=== PATIENT | female | born 1960 | race African-American/Black ===

== ENCOUNTER → 2017-04-16 | Outpatient (CLI) | payer BC, OTHER ==
[~2017-04-16] VITALS: Ht 157.5 cm; Wt 107.0 kg
[~2017-04-16] MED LIST: ALDACTONE50 MG PO; CARDIZEM CD180 MG PO; HYTRIN 5 M5 MG/1 CAP PO; IBUPROFEN 800800 M1 PO; MAXZIDE-25 MG1 EACH PO; OXYCODONE-ACET1 EACH PO; PRINZIDE 20-251 EACH PO; ZANAFLEX4 MG PO
--- NOTE | ~2017-04-16 | HPC ---
[facility] [place] [address] PAIN MANAGEMENT CONSULTATION Name: LAWRENCE RAMEY Room #: REG [facility].#: [id number] Admission: 04/16/17 Attend Phys: Matthias Milton DO Discharge: Date of : 62 Report #: [id number] THIS REPORT FOR: //name// CC: Matthias OLIVEIRA DATE OF SERVICE: 04/16/2017 DATE OF SERVICE: 04/16/2017 CHIEF COMPLAINT: Low back pain, left lower extremity pain and paresthesias. HISTORY OF PRESENT ILLNESS: As you know, the patient is an extremely pleasant 56-year-old female, who returns today in followup visit with recurrent low back pain, left lower extremity pain. The patient denies injury or trauma that may have led to recurrence of symptoms. She underwent an epidural injection under fluoroscopic guidance at her last visit of 05/15/2016. She received 100% improvement in overall pain lasting for nearly 11 months. She has had a slow and progressive return of symptoms without inciting injury or trauma. She returns to discuss the possibility of undergoing the next in a series of epidural injections. She has seen a great efficacy with the procedures. ALLERGIES: No known drug allergies. CURRENT MEDICATIONS: Percocet 5/325 one tab every 6 hours p.r.n. for her pain, tizanidine 4 mg 3 times a day p.r.n., triamterene/hydrochlorothiazide 37.5/25 one tab per day, diltiazem 180 mg per day. SOCIAL HISTORY: The patient denies tobacco, alcohol, IV or illicit drug use. She is a business analytics specialist. She is working, not receiving workmen's compensation, unaccompanied today. IMAGING: No new imaging available. PHYSICAL EXAMINATION: VITAL SIGNS: Blood pressure 145/91, pulse 66, respiratory rate 14, unlabored. The patient is 96% on room air, height 5 feet 2 inches tall, weight 236 pounds, BMI calculated 43.2. GENERAL: Well developed, well nourished, well hydrated, morbidly obese 56-year-old female appearing stated age, placing pain score today 2/10 up to 10/10 depending on activity. HEENT: Normocephalic, atraumatic. Pupils equal, round, reactive to light. Extraocular muscles are intact. Speech remains fluent. EXTREMITIES: Show no clubbing, no cyanosis, no edema. [facility] [address] [place] [address] PAIN MANAGEMENT CONSULTATION Name: LAWRENCE RAMEY Room #: REG [facility]#: [id number] Admission: 04/16/17 Attend Phys: Matthias Milton DO Discharge: Date of : 62 Report #: [id number] MUSCULOSKELETAL: Lower extremity strength appears equal and symmetrical 5/5. She does have mild giveaway strength with hip flexion, knee extension on the left when compared to the right. Gait is antalgic favoring left lower extremity over right. Muscle bulk and tone equal and symmetrical. Seated straight leg raising negative. Supine straight leg raising positive on the left. She is displaying no ankle clonus, no Babinskis. ASSESSMENT: 1. Symptomatic lumbar radiculopathy. 2. Spinal stenosis of the lumbar spine. 3. Displacement of a lumbar intervertebral disk with radiculopathy. 4. Lumbosacral spondylosis with radiculopathy. 5. Chronic intractable pain. PLAN: 1. The patient returns today in followup visit indicating 11 months improvement with epidural injection at our last visit of 05/15/2016. The patient has had a slow and progressive return of her lumbar radicular symptoms. She has returned today requesting epidural injection under fluoroscopic guidance. The patient indicates that she had returned today with recurrence of symptoms radiating anywhere from 4-10/10 depending on activities. She and I discussed the possibility of repeating an epidural injection. She does wish to plan this epidural injection next Saturday, so that she can take the remainder of Saturday and ____ Saturday off to recover from the procedure. The patient and I will schedule her back on next Saturday for an epidural injection under fluoroscopic guidance, given her extreme improvement in symptoms with the previous injection. 2. No medication changes were made at today's visit. The patient will continue current medical therapy as previously prescribed. 3. We will see the patient back in followup visit in 1 week from today to undergo epidural injection under fluoroscopic guidance. She will then take the remainder of Saturday and Saturday off to recover from the procedure. By: [id number] Matthias Milton DO /nt
[2017-04-16 08:11] VITALS: BP 145/91
== END | disposition home or self-care (01) ==
LOC: PAIN 06:48
DX: M51.16 Intervertebral disc disorders with radiculopathy, lumbar region (principal); G89.29 Other chronic pain; M48.06 Spinal stenosis, lumbar region; M47.27 Other spondylosis with radiculopathy, lumbosacral region

== ENCOUNTER → 2017-05-01 | Outpatient (CLI) | payer BC, OTHER ==
[~2017-05-01] VITALS: Ht 157.5 cm; Wt 105.9 kg
[~2017-05-01] MED LIST changes: +LIPITOR 20 MG T20 M1 PO
[2017-05-01 08:35] VITALS: BP 130/81
== END | disposition home or self-care (01) ==
LOC: PAIN 04-23 14:53
DX: M48.06 Spinal stenosis, lumbar region (principal); Z98.890 Other specified postprocedural states

== ENCOUNTER → 2019-03-24 | Outpatient (CLI) | payer OTHER ==
[~2019-03-24] VITALS: Ht 157.5 cm; Wt 94.1 kg
[~2019-03-24] MED LIST changes: +NAPROSYN500 MG PO
[2019-03-24 08:20] VITALS: BP 116/64
--- NOTE | 2019-03-24 08:29 | NUR ---
Pain Clinic Assessment: 1. History of Osteoarthritis: DENIES History of Rheumatoid Arthritis: DENIES 2. Height: 5 ft. 2 in. 157.5 cm. Weight: 207.4 lb. oz. 94.076 kg. Patient's BMI: 37.9 3. Vital Signs: BP: 116/64 Pulse: 60 Resp: 14 Temp: 02 Sat: 100 ECG Mon: 4. Pain Intensity: 9 5. Fall Risk: Dizziness: N Needs help standing or walking: N Fallen in the last 3 months: N Fall risk comments: 6. Patient on Blood Thinner: None 7. History of Hypertension: Y 8. Opioid Therapy greater than 6 weeks: N Opiate Contract Signed: 9. Risk Assessment Tool Provided: low risk 10. Functional Assessment Tool: 44/ 11. Recreational Drug Use: Never Drug Type: Tobacco Use: Never Smoker Tobacco Type: Amount or Packs/day: How Many Years: Alcohol Use: No Frequency: Quant:
--- NOTE | 2019-03-25 09:24 | HPC ---
[facility] [place] [address] PAIN MANAGEMENT CONSULTATION Name: LAWRENCE WOLFE Room #: REG [facility]..#: [id number] Admission: 03/24/19 ������������������ Attend Phys: Matthias Milton DO Discharge: ������������������ Date of : 62 Report #: [id number] THIS REPORT FOR: //name// CC: Matthias Alba MD DATE OF SERVICE: 03/24/2019 CHIEF COMPLAINT: Low back pain; bilateral lower extremity pain, left greater than right. HISTORY OF PRESENT ILLNESS: As you know, the patient is a 58-year-old female returning to our clinic to undergo next in the series of lumbar epidural injections. She did very well with previous epidural injection performed almost 1 year ago today. She reports 80-90% improvement in overall pain lasting until just recently where she had a slow and progressive return of symptoms. She states that she has been much more active of late and believes this may have exacerbated symptoms. She returns today to undergo next in the series of epidural injections to address her 9/10 pain. ALLERGIES: No known drug allergies. CURRENT MEDICATIONS: Triamterene/hydrochlorothiazide, tizanidine, naproxen. SOCIAL HISTORY: The patient denies tobacco, alcohol or IV illicit drug use. She is unaccompanied today. IMAGING: No new imaging available. PHYSICAL EXAMINATION: VITAL SIGNS: Blood pressure 116/64, pulse 60, respiratory rate 14 and unlabored. The patient is 100% on room air. Height 5 feet 2 inches tall, weight 207.4 pounds, and BMI calculated 37.9. GENERAL: Well-developed, well-nourished, well-hydrated exogenously obese 58-year-old female appearing stated age. Pain is rated round 9/10. HEENT: Normocephalic, atraumatic. Pupils equal, round, reactive to light. EXTREMITIES: Show no clubbing, no cyanosis, and no edema. MUSCULOSKELETAL: Lower extremity strength equal and symmetrical 5/5. No giveaway strength noted with pain generation and hip flexion on the left when compared to the right. Seated straight leg raising negative. Supine straight leg raising positive. Juan J's test negative. Modified Gaenslen's positive for axial low back pain. Ankle clonus negative. Babinski is negative. [address] [address] PAIN MANAGEMENT CONSULTATION Name: LAWRENCE WOLFE Room #: REG [facility] Raeann#: [id number] Admission: 03/24/19 ������������������ Attend Phys: Matthias Milton DO Discharge: ������������������ Date of : 62 Report #: [id number] ASSESSMENT: 1. Symptomatic lumbar radiculopathy. 2. Spinal stenosis of lumbar spine. 3. Displacement of lumbar intervertebral disk with radiculopathy. 4. Lumbosacral spondylosis with radiculopathy. 5. Chronic intractable pain. PLAN: 1. The patient has returned today in followup visit requesting to undergo next in the series of epidural injections under fluoroscopic guidance. The patient reported 80-90% improvement in overall pain with previous epidural injection lasting until just recently where she has had a slow and progressive return of symptoms. She has had no new imaging available to us and denies injury or trauma that may have led to symptom development. She returns today requesting next in the series of epidural injections. We have advised the patient of the risks and benefits. She states she understood and wished to proceed. No medication changes made at today's visit. The patient will continue current medical therapy as previously prescribed. We will see the patient back in followup visit on an as needed basis for possible next in the series of epidural injections. DESCRIPTION OF PROCEDURE: L5-S1 paramedian epidural steroid injection under fluoroscopic guidance. This is the third procedure of the first series that the patient is undergoing. After obtaining written consent, the patient was taken back to the fluoroscopy suite, placed in a prone position with pillow under the abdomen to decrease lumbar lordosis. The skin overlying the lumbosacral area was then prepped and draped in aseptic fashion. The L5-S1 vertebral interspace was then identified by AP fluoroscopy. The skin and subcutaneous tissue overlying the target site of injection was anesthetized with 3 mL 1% lidocaine. A 20-gauge, 4.5-inch Tuohy needle was then advanced under fluoroscopic guidance towards the epidural space using a left parasagittal approach. The epidural space was identified using loss of resistance to air technique. After negative aspiration for heme or cerebrospinal fluid, a total of 1 mL of Omnipaque was injected. A lumbar epidurogram was confirmed using both AP and lateral fluoroscopy. After negative aspiration for heme or cerebrospinal fluid, 5 mL of a solution containing 2 mL 40 mg per mL, 80 mg total triamcinolone and 3 mL of lidocaine 1% was injected in increments. Contrast spread was noted in posterior epidural space. The needle was then retracted approximately half way and needle tract flushed with 1 mL of 1% lidocaine. Needle was then removed. There were no apparent sensory or motor deficits in the lower extremity following the procedure. A sterile bandage was placed over the injection site. [address] [address] PAIN MANAGEMENT CONSULTATION Name: LAWRENCE WOLFE Room #: REG [facility] Raeann#: [id number] Admission: 03/24/19 ������������������ Attend Phys: Matthias Milton DO Discharge: ������������������ Date of : 62 Report #: [id number] The heart rate, pulse, oximetry and blood pressure were continuously monitored after the procedure. There were no apparent complications. The patient tolerated the procedure well and was carefully escorted to the recovery room in stable condition. There were no apparent complications. After meeting discharge criteria, the patient was then discharged home. ��������������������������������������������� <ELECTRONICALLY SIGNED> ���������������������������������������� By: Matthias Milton DO ��������������������������������������������� 03/25/19 0924 1537 0058 Matthias Milton DO /nt
== END | disposition home or self-care (01) ==
LOC: PAIN 06:39
DX: M51.16 Intervertebral disc disorders with radiculopathy, lumbar region (principal); M48.061 Spinal stenosis, lumbar region without neurogenic claudication; M47.27 Other spondylosis with radiculopathy, lumbosacral region; G89.29 Other chronic pain; Z79.899 Other long term (current) drug therapy; Z98.890 Other specified postprocedural states; E66.09 Other obesity due to excess calories; Z68.37 Body mass index [BMI] 37.0-37.9, adult

== ENCOUNTER → 2019-06-02 | Outpatient (CLI) | payer OTHER ==
[~2019-06-02] VITALS: Ht 157.5 cm; Wt 90.4 kg
--- NOTE | ~2019-06-02 | HPC ---
[facility] [address] [place] [address] PAIN MANAGEMENT CONSULTATION Name: LAWRENCE WOLFE Room #: REG CLRuben Shaina.#: [id number] Admission: 06/02/19 ������������������ Attend Phys: Matthias Milton DO Discharge: ������������������ Date of : 62 Report #: [id number] THIS REPORT FOR: //name// CC: Matthias Alba DATE OF SERVICE: 06/02/2019 CHIEF COMPLAINT: Low back pain, bilateral lower extremity pain with paresthesias, left greater than right. HISTORY OF PRESENT ILLNESS: As you know, the patient is a 58-year-old female who returns to our clinic per the request of her neurosurgeon to undergo next in the series of lumbar epidural injections under fluoroscopic guidance. The patient reports pain today at 2-3/10. States pain is radiating, dull, stabbing, aching when describing symptoms, exacerbated with walking, getting out of bed, yoga, physical therapy, improves with stretching exercises. She reports previous epidural injection gave 100% improvement in the low back pain, but still is experiencing some bilateral lower extremity symptoms for which she has been returning to undergo next in the series of epidural injections. She denies any new injury or trauma or changes in medical therapy that may have led to recurrence of pain. ALLERGIES: No known drug allergies. CURRENT MEDICATIONS: Triamterene and tizanidine. SOCIAL HISTORY: The patient denies tobacco, alcohol or IV illicit drug use. She is unaccompanied today. IMAGING: No new imaging available. PHYSICAL EXAMINATION: VITAL SIGNS: Blood pressure 112/77, pulse is 51, respiratory rate 16 and unlabored. The patient is 97% on room air. Height 5 feet 2 inches tall, weight 199.4 pounds, BMI calculated 36.5. GENERAL: Well-developed, well-nourished, well-hydrated, exogenously obese 58-year-old female appearing stated age, pain is rated today 2-3/10. HEENT: Normocephalic, atraumatic. Pupils equal, round, reactive to light. EXTREMITIES: Show no clubbing, no cyanosis, no edema. MUSCULOSKELETAL: Lower extremity strength is symmetrical again today, 5/5. Slight giveaway strength noted with hip flexion, knee extension on the left. Seated straight leg raising negative. Supine straight leg raising positive. Juan J's test negative. Modified Gaenslen's positive for axial low back pain. [facility] [address] [place] [address] PAIN MANAGEMENT CONSULTATION Name: LAWRENCE WOLFE Room #: REG OL[facility] LiceaPolly#: [id number] Admission: 06/02/19 ������������������ Attend Phys: Matthias Milton DO Discharge: ������������������ Date of : 62 Report #: [id number] Gait mildly antalgic favoring left lower extremity over right. ASSESSMENT: 1. Symptomatic lumbar radiculopathy. 2. Progressively worsening spinal stenosis of lumbar spine. 3. Displacement of lumbar intervertebral disk with radiculopathy. 4. Lumbosacral spondylosis with radiculopathy. 5. Lumbar degeneration. 6. Chronic intractable pain. PLAN: 1. The patient returns today in followup visit, requesting to undergo next in the series of lumbar epidural injections under fluoroscopic guidance. She has had 100% improvement in pain involving the low back, but continues to experience bilateral lower extremity pain, left greater than right. She returns today in followup visit to undergo the procedure. She has been advised risks and benefits of procedure, states understood and wished to proceed. 2. No medication changes made at today's visit. The patient will continue current medical therapy as previously prescribed. 3. The patient returns to our clinic on an as-needed basis for possible next in the series of epidural injections. This would be the third epidural injection in the 6 months. She had her first injection at the 6-month series on 03/24/2019. This is the second in the series. She has one remaining epidural injections until 09/24/2019 based on the 3 and a 6-month period criteria. She will make an appointment back on an as-needed basis. PROCEDURE NOTE DESCRIPTION OF PROCEDURE: L5-S1 paramedian epidural steroid injection under fluoroscopic guidance. This is the third procedure of the second series that the patient is undergoing. After obtaining written consent, the patient was taken back to the fluoroscopy suite, placed in a prone position with pillow under the abdomen to decrease lumbar lordosis. The skin overlying the lumbosacral area was then prepped and draped in aseptic fashion. The L5-S1 vertebral interspace was then identified by AP fluoroscopy. The skin and subcutaneous tissue overlying the target site of injection was anesthetized with 3 mL 1% lidocaine. A 20-gauge 4-1/2 inch Tuohy needle was then advanced under fluoroscopic guidance towards the epidural space using a right paramedian approach. The epidural space was identified using loss of resistance to air technique. After negative aspiration for heme or cerebrospinal fluid, a total of 1 mL of Omnipaque was injected. A lumbar epidurogram was confirmed using both AP and lateral fluoroscopy. After negative aspiration for heme or cerebrospinal fluid, [address] mL [address] [address] PAIN MANAGEMENT CONSULTATION Name: LAWRENCE WOLFE Room #: REG C[facility]uben Cary#: [id number] Admission: 06/02/19 ������������������ Attend Phys: Matthias Milton DO Discharge: ������������������ Date of : 62 Report #: [id number] a solution containing 2 mL 40 mg per mL, 80 mg total triamcinolone and 3 mL of lidocaine 1% was injected in increments. Contrast spread was noted posterior epidural space. The needle was then retracted approximately half way and needle tract flushed with 1 mL of 1% lidocaine. Needle was then removed. There were no apparent sensory or motor deficits in the lower extremity following the procedure. A sterile bandage was placed over the injection site. The heart rate, pulse, oximetry and blood pressure were continuously monitored after the procedure. There were no apparent complications. The patient tolerated the procedure well and was carefully escorted to the recovery room in stable condition. There were no apparent complications. After meeting discharge criteria, the patient was then discharged home. ��������������������������������������������� ���������������������������������������� By: ��������������������������������������������� 1632 0925 Matthias Milton DO /nt
[2019-06-02 08:13] VITALS: BP 112/77
--- NOTE | 2019-06-02 08:35 | NUR ---
Pain Clinic Assessment: 1. History of Osteoarthritis: DENIES History of Rheumatoid Arthritis: DENIES 2. Height: 5 ft. 2 in. 157.5 cm. Weight: 199.4 lb. oz. 90.447 kg. Patient's BMI: 36.5 3. Vital Signs: BP: 112/77 Pulse: 51 Resp: 16 Temp: 02 Sat: 97 ECG Mon: 4. Pain Intensity: 2-3 NOW 5 A WORST 5. Fall Risk: Dizziness: N Needs help standing or walking: N Fallen in the last 3 months: N Fall risk comments: 6. Patient on Blood Thinner: None 7. History of Hypertension: Y 8. Opioid Therapy greater than 6 weeks: N Opiate Contract Signed: 9. Risk Assessment Tool Provided: low risk 10. Functional Assessment Tool: 44/70 11. Recreational Drug Use: Never Drug Type: Tobacco Use: Never Smoker Tobacco Type: Amount or Packs/day: How Many Years: Alcohol Use: No Frequency: Quant:
== END | disposition home or self-care (01) ==
LOC: PAIN 05-27 06:47
DX: M51.16 Intervertebral disc disorders with radiculopathy, lumbar region (principal); M48.061 Spinal stenosis, lumbar region without neurogenic claudication; M47.27 Other spondylosis with radiculopathy, lumbosacral region; G89.29 Other chronic pain; Z98.890 Other specified postprocedural states; Z79.899 Other long term (current) drug therapy

== ENCOUNTER 2019-12-05 22:46 | Emergency (ER) | payer OTHER ==
[~2019-12-05] VITALS: Ht 157.5 cm; Wt 93.0 kg
--- NOTE | ~2019-12-05 | EKG ---
[facility] [place] [address] [place] [address] ELECTROCARDIOGRAM REPORT Name: LAWRENCE WOLFE Room #: PRE M.R.#: [id number] Admission: Attend Phys: Discharge: Date of : 62 Report #: [id number] THIS REPORT FOR: cc: Cuco Alba MD, Epiphany MD ~ THIS REPORT FOR: //name// [facility] ED Test Date: 2019-12-05 Test Time: 23:17:54 Pat Name: LAWRENCE WOLFE Department: Room: Gender: F Client Services Account Manager: shady : 1960 Requested By: Neville Meadows Order Number: [id number] MD: Measurements Intervals [place] Rate: 62 P: 38 NV: 153 QRS: 36 QRSD: 93 T: 53 QT: 429 QTc: 436 Interpretive Statements Sinus rhythm No previous ECG available for comparison [email or web address] By: 16 16 Tapan Phelan MD /EPI
[2019-12-06 00:02] LABS: ABSOLUTE NEUTROPHILS 2.5 thou/uL (1.4-8.2); BASOPHILS 1.2 % (0.0-2.0); EOSINOPHILS 2.9 % (0.0-3.0); HEMATOCRIT 39.6 % (37.0-47.0); HEMOGLOBIN 12.4 gm/dL (12.0-15.0); LYMPHOCYTES 42.7 % (24.0-44.0); MCH 26.6 pg (26.0-34.0); MCHC 31.4 g/dL (28.0-37.0); MCV 84.8 fL (80.0-100.0); PLATELET COUNT 214 thou/uL (150-400); POLYS 42.2 % (36.0-66.0); RBC 4.67 mil/uL (4.20-5.00); RDW 14.3 % (10.5-14.5); WBC 5.9 thou/uL (4.0-11.0)
[2019-12-06 00:13] LABS: ANION GAP 7 mmol/L (7-16); BUN 15 mg/dL (7-18); CALCIUM 9.7 mg/dL (8.5-10.1); CHLORIDE 105 mmol/L (98-107); CO2 28 mmol/L (21-32); CREATININE 0.9 mg/dL (0.6-1.0); GLUCOSE 86 mg/dL (74-106); POTASSIUM 3.6 mmol/L (3.5-5.1); SODIUM 140 mmol/L (136-145)
[2019-12-06 00:22] LABS: ALBUMIN 3.9 g/dL (3.4-5.0); MAGNESIUM 1.9 mg/dL (1.8-2.4); SGOT 18 U/L (15-37); SGPT 17 U/L (30-65); TOTAL BILIRUBIN 0.6 mg/dL (<0.1-1.0); TOTAL PROTEIN 7.4 g/dL (6.4-8.2); TROPONIN-I <0.06 ng/mL (<0.06)
[2019-12-06] MEDS ORDERED: CATAPRES0.1 MG PO (00:27)
[2019-12-06] MEDS ORDERED: ATIVAN0.5 M1 PO (00:30)
[2019-12-06] MEDS ORDERED: VALSARTAN320 MG PO (00:40)
[2019-12-06 01:12] VITALS: BP 146/92
[2019-12-06 01:13] LABS: PROTIME 10.7 Seconds (9.3-11.4)
== END 2019-12-06 01:00 | disposition home or self-care (01) ==
LOC: ER 22:46
PROVIDERS: Emergency Medicine
DX: I10 Essential (primary) hypertension (principal); R00.2 Palpitations; F41.9 Anxiety disorder, unspecified; Z88.8 Allergy status to other drugs, medicaments and biological substances

== ENCOUNTER 2019-12-20 21:46 | Emergency (ER) | payer OTHER ==
[~2019-12-20] VITALS: Ht 157.5 cm; Wt 93.0 kg
[~2019-12-20 21:46] MED LIST changes: +ATIVAN0.5 M1 PO; +CATAPRES0.1 MG PO; +VALSARTAN320 MG PO
[2019-12-21 00:11] LABS: ABSOLUTE NEUTROPHILS 2.8 thou/uL (1.4-8.2); EOSINOPHILS 2.8 % (0.0-3.0); HEMATOCRIT 39.9 % (37.0-47.0); HEMOGLOBIN 12.3 gm/dL (12.0-15.0); LYMPHOCYTES 35.2 % (24.0-44.0); MCH 26.2 pg (26.0-34.0); MCHC 30.8 g/dL (28.0-37.0); MCV 85.1 fL (80.0-100.0); MONOCYTES 8.7 % (1.0-8.0); PLATELET COUNT 205 thou/uL (150-400); POLYS 52.3 % (36.0-66.0); RBC 4.69 mil/uL (4.20-5.00); RDW 14.1 % (10.5-14.5); WBC 5.4 thou/uL (4.0-11.0)
[2019-12-21 00:19] LABS: ANION GAP 6 mmol/L (7-16); BUN 16 mg/dL (7-18); CALCIUM 9.6 mg/dL (8.5-10.1); CHLORIDE 106 mmol/L (98-107); CO2 30 mmol/L (21-32); GLUCOSE 96 mg/dL (74-106); POTASSIUM 3.4 mmol/L (3.5-5.1); SODIUM 142 mmol/L (136-145)
[2019-12-21 00:30] LABS: ALBUMIN 3.9 g/dL (3.4-5.0); LIPASE 126 U/L (73-393); MAGNESIUM 1.8 mg/dL (1.8-2.4); SGOT 18 U/L (15-37); SGPT 21 U/L (30-65); TOTAL BILIRUBIN 0.4 mg/dL (<0.1-1.0); TOTAL PROTEIN 7.5 g/dL (6.4-8.2); TROPONIN-I <0.06 ng/mL (<0.06)
[2019-12-21 01:21] LABS: URINE BILIRUBIN NEGATIVE (Negative); URINE BLOOD NEGATIVE (Negative); URINE CLARITY CLEAR; URINE COLOR YELLOW; URINE GLUCOSE-RANDOM* NEGATIVE (Negative); URINE KETONES NEGATIVE (Negative); URINE LEUKOCYTES-REFLEX NEGATIVE (Negative); URINE NITRITE-REFLEX NEGATIVE (Negative); URINE PROTEIN (DIPSTICK) NEGATIVE (Negative); URINE UROBILINOGEN 0.2 E.U./dl (0.2-1.0)
[2019-12-21] MEDS ORDERED: PRILOSEC OTC20 MG PO (01:41)
[2019-12-21] MEDS ORDERED: TRAMADOL 50 MG50 MG PO (01:41)
[2019-12-21 02:06] VITALS: BP 161/90
--- NOTE | 2019-12-22 08:18 | EKG ---
[facility] [place] [address] ELECTROCARDIOGRAM REPORT Name: LAWRENCE WOLFE [id number] Admission: 12/20/19 Attend Phys: Discharge: 12/21/19 Date of : 62 Report #: [id number] THIS REPORT FOR: cc: Cuco Alba MD, Steven A. MD Couchonnal, Luis F. MD ~ THIS REPORT FOR: //name// [facility] ED Test Date: 2019-12-20 Test Time: 23:16:04 Pat Name: LAWRENCE WOLFE Department: Room: Gender: F Machine Cutter: zaira : 1960 Requested By: Neville Meadows Order Number: [id number] MD: Fredrick Mcgee Measurements Intervals [place] Rate: 48 P: 42 SD: 158 QRS: 32 QRSD: 98 T: 42 QT: 464 QTc: 415 Interpretive Statements Sinus bradycardia Probable left atrial enlargement Abnormal R-wave progression, late transition Left ventricular hypertrophy Borderline T abnormalities, anterior leads Compared to ECG 12/05/2019 23:17:54 Left ventricular hypertrophy now present T-wave abnormality now present Sinus rhythm no longer present Electronically Signed On 12-22-2019 8:17:43 SERVICE SUPERINTENDENT by Fredrick Mcgee [email or web address] <ELECTRONICALLY SIGNED> By: Fredrick Mcgee MD 12/22/19 08 2316 231 Fredrick Mcgee MD /EPI
== END 2019-12-21 02:09 | disposition home or self-care (01) ==
LOC: ER 21:46
PROVIDERS: Emergency Medicine
DX: I10 Essential (primary) hypertension (principal); R07.89 Other chest pain; R00.2 Palpitations; R10.13 Epigastric pain; Z88.8 Allergy status to other drugs, medicaments and biological substances

== ENCOUNTER 2019-12-25 21:22 | Emergency (ER) | payer OTHER ==
[~2019-12-25] VITALS: Ht 157.5 cm; Wt 90.7 kg
[~2019-12-25 21:22] MED LIST changes: +PRILOSEC OTC20 MG PO; +TRAMADOL 50 MG50 MG PO
[2019-12-25] MEDS ORDERED: CLONIDINE HCL0.2 M2 PO (21:49)
[2019-12-25] MEDS ORDERED: PRAZOSIN HCL2 MG PO (21:49)
[2019-12-25 22:17] LABS: ABSOLUTE NEUTROPHILS 2.9 thou/uL (1.4-8.2); ANION GAP 11 mmol/L (7-16); BASOPHILS 0.4 % (0.0-2.0); BUN 16 mg/dL (7-18); CALCIUM 10.6 mg/dL (8.5-10.1); CHLORIDE 104 mmol/L (98-107); CO2 26 mmol/L (21-32); CREATININE 1.1 mg/dL (0.6-1.0); EOSINOPHILS 1.5 % (0.0-3.0); GLUCOSE 112 mg/dL (74-106); HEMATOCRIT 40.8 % (37.0-47.0); HEMOGLOBIN 12.9 gm/dL (12.0-15.0); LYMPHOCYTES 34.8 % (24.0-44.0); MCH 26.5 pg (26.0-34.0); MCHC 31.7 g/dL (28.0-37.0); MCV 83.4 fL (80.0-100.0); PLATELET COUNT 220 thou/uL (150-400); POLYS 54.3 % (36.0-66.0); POTASSIUM 3.2 mmol/L (3.5-5.1); RBC 4.89 mil/uL (4.20-5.00); RDW 13.7 % (10.5-14.5); SODIUM 141 mmol/L (136-145); WBC 5.4 thou/uL (4.0-11.0)
[2019-12-25 22:26] LABS: MAGNESIUM 1.8 mg/dL (1.8-2.4); TROPONIN-I <0.06 ng/mL (<0.06)
[2019-12-25 22:57] VITALS: BP 132/71
--- NOTE | 2019-12-28 08:28 | EKG ---
[facility] [place] [address] ELECTROCARDIOGRAM REPORT Name: LAWRENCE WOLFE Room #: DEP [facility]#: [id number] Admission: 12/25/19 Attend Phys: Discharge: 12/25/19 Date of : 62 Report #: [id number] THIS REPORT FOR: cc: Matthias Llanes James A. DO Lundgren,Mark Villar MD [facility] ~ THIS REPORT FOR: //name// [facility] ED Test Date: 2019-12-25 Test Time: 21:26:36 Pat Name: LAWRENCE WOLFE Department: Room: Gender: F Ladderman: JOHNY MCCRARY : 1960 Requested By: Hernan Lindsey Order Number: [id number] MD: Mark Bain Measurements Intervals [place] Rate: 68 P: 48 AR: 137 QRS: 38 QRSD: 100 T: 30 QT: 326 QTc: 347 Interpretive Statements Sinus rhythm Nonspecific T wave abnormality Compared to ECG 12/20/2019 23:16:04 Sinus bradycardia no longer present Electronically Signed On 12-28-2019 8:27:29 HOT WORKER by Mark Bain [email or web address] <ELECTRONICALLY SIGNED> By: Mark Bain MD, [facility] 12/28/1927 25 25 Mark Bain MD, [facility] /EPI
== END 2019-12-25 22:58 | disposition home or self-care (01) ==
LOC: ER 21:22
PROVIDERS: Emergency Medicine
DX: R00.2 Palpitations (principal); I10 Essential (primary) hypertension; Z88.8 Allergy status to other drugs, medicaments and biological substances

== ENCOUNTER 2019-12-28 22:10 | Emergency (ER) | payer OTHER ==
[~2019-12-28] VITALS: Ht 157.5 cm; Wt 88.5 kg
[~2019-12-28 22:10] MED LIST changes: +CLONIDINE HCL0.2 M2 PO; +PRAZOSIN HCL2 MG PO
[2019-12-28] MEDS ORDERED: DILTIAZEM ER180 M2 PO (22:28)
[2019-12-29 01:52] VITALS: BP 156/85
--- NOTE | 2019-12-29 08:10 | EKG ---
[facility] [place] [address] ELECTROCARDIOGRAM REPORT Name: LAWRENCE WOLFE [facility] [id number] Admission: 12/28/19 Attend Phys: Discharge: 12/29/19 Date of : 62 Report #: [id number] THIS REPORT FOR: cc: Matthias Llanes,Fredrick Becerra MD ~ THIS REPORT FOR: //name// [facility] ED Test Date: 2019-12-28 Test Time: 22:14:22 Pat Name: LAWRENCE WOLFE Department: Room: Gender: F Operator Assistant I Cementing: MEMO : 1960 Requested By: Sheldon Marrero Order Number: [id number] MD: Fredrick Mcgee Measurements Intervals [place] Rate: 65 P: 54 VT: 154 QRS: 18 QRSD: 93 T: 74 QT: 447 QTc: 465 Interpretive Statements Sinus rhythm Probable left atrial enlargement Compared to ECG 12/25/2019 21:26:36 T-wave abnormality no longer present Electronically Signed On 12-29-2019 8:09:48 CORPORATE PILOT by Fredrick Mcgee [email or web address] <ELECTRONICALLY SIGNED> By: Fredrick Mcgee MD 12/29/19 0809 13 13 Fredrick Mcgee MD /EPI
== END 2019-12-29 01:55 | disposition home or self-care (01) ==
LOC: ER 22:10
DX: R07.9 Chest pain, unspecified (principal); R51 Headache; R10.13 Epigastric pain; I10 Essential (primary) hypertension; Z98.890 Other specified postprocedural states; Z88.8 Allergy status to other drugs, medicaments and biological substances

== ENCOUNTER → 2021-05-16 | Outpatient (CLI) | payer OTHER ==
[~2021-05-16] VITALS: Ht 157.5 cm; Wt 93.5 kg
[~2021-05-16] MED LIST changes: +COZAAR 25 MG TA25 M1 PO; +DILTIAZEM ER180 M2 PO
[2021-05-16 09:26] VITALS: BP 159/99
--- NOTE | 2021-05-16 09:58 | NUR ---
Pain Clinic Assessment: 1. History of Osteoarthritis: DENIES History of Rheumatoid Arthritis: DENIES 2. Height: 5 ft. 2 in. 157.5 cm. Weight: 206.2 lb. oz. 93.532 kg. Patient's BMI: 37.7 3. Vital Signs: BP: 159/99 Pulse: 83 Resp: 16 Temp: 02 Sat: 97 ECG Mon: 4. Pain Intensity: 7-8 ACTIVITY 5. Fall Risk: Dizziness: N Needs help standing or walking: N Fallen in the last 3 months: N Fall risk comments: 6. Patient on Blood Thinner: None 7. History of Hypertension: Y 8. Opioid Therapy greater than 6 weeks: N Opiate Contract Signed: 9. Risk Assessment Tool Provided: low risk 10. Functional Assessment Tool: 11. Recreational Drug Use: Never Drug Type: Tobacco Use: Never Smoker Tobacco Type: Amount or Packs/day: How Many Years: Alcohol Use: No Frequency: Quant:
--- NOTE | 2021-05-17 08:04 | HPC ---
[facility] [place] [address] PAIN MANAGEMENT CONSULTATION Name: LAWRENCE WOLFE [id number] Admission: 05/16/21 Attend Phys: Matthias Milton DO Discharge: Date of : 62 Report #: [id number] THIS REPORT FOR: cc: DIXIE CORTEZ Physician not on staff Matthias Milton DO ~ cc: Dr. Cortez DATE OF SERVICE: 05/16/2021 DATE OF SERVICE: 05/16/2021 REFERRING PHYSICIAN: Dr. Cortez. CHIEF COMPLAINT: Low back pain, bilateral lower extremity pain with paresthesias. HISTORY OF PRESENT ILLNESS: As you know, the patient is a 60-year-old female who returns today in followup visit with low back pain and bilateral lower extremity pain with paresthesias. The patient reports the pain begins in the bilateral upper buttock area and radiates to the legs down the anterior portion of the groin. She describes the pain as chronic radiating, dull, aching and stabbing, exacerbated with activity such as walking, getting out of bed. Pain is improved with repositioning, standing, yoga and stretching. She has been referred to our clinic to discuss potential treatment options to address suspected lumbar radiculopathy. She has changes noted at the L2-3 level based on recent referral to our clinic showing central canal stenosis consistent with the patient's symptoms. She has been evaluated from a hip standpoint, but the findings of the imaging shows no findings concerning in the area. She has been referred to our service to discuss interventional treatment options. ALLERGIES: HYDROCHLOROTHIAZIDE. CURRENT MEDICATIONS: Losartan 25 mg once a day, diltiazem ER 160 mg once a day. SOCIAL HISTORY: The patient reports herself as a nonsmoker. She denies IV or illicit drug use. Denies any chronic alcohol use. She is unaccompanied at today's visit. IMAGING: See chart. PHYSICAL EXAMINATION: VITAL SIGNS: Blood pressure 159/99, pulse 83, respiratory rate 16 and unlabored. The patient 97% on room air. Height 5 feet 2 inches tall, weight 206.2 pounds, BMI calculated 37.7. GENERAL: Well-developed, well-nourished, well-hydrated, 60-year-old female appearing stated age, pain is rated today at a level of 7-8/10. [address] [address] PAIN MANAGEMENT CONSULTATION Name: LAWRENCE WOLFE Room #: REG [facility] Raeann#: [id number] Admission: 05/16/21 Attend Phys: Matthias Milton DO Discharge: Date of : 62 Report #: [id number] HEENT: Normocephalic, atraumatic. Pupils equal, round and responsive. She is wearing a mask in compliance with COVID-19 regulations. EXTREMITIES: Show no clubbing, no cyanosis. No appreciable edema. MUSCULOSKELETAL: Lower extremity strength appears symmetrical 5/5 intact to light touch from L1 through S2 dermatomes. Seated straight leg raising negative. Supine straight leg raising is positive. Fabere's test is negative. Modified Gaenslen's positive for axial low back pain. Ankle clonus negative. Babinski is negative. Muscle bulk and tone is symmetrical in lower extremities. ASSESSMENT: 1. Symptomatic lumbar radiculopathy. 2. Progressively worsening spinal stenosis of lumbar spine. 3. Displacement of lumbar intervertebral disk with radiculopathy. 4. Lumbosacral spondylosis with radiculopathy. 5. Lumbar degeneration. 6. Chronic intractable pain. PLAN: 1. The patient returns today in followup visit to begin the process of authorization to undergo next in the series of lumbar epidural injections. The patient reports excellent benefit with previous epidural injection reporting 80% improvement in overall pain lasting for nearly 2 years. She returns today in followup visit to begin the authorization process to undergo next in the series of epidural injections. We agreed that epidural injection would be most appropriate treatment option given the longevity of the previous injection and the lack of any new findings and imaging studies. The patient and I discussed this at length today. She is agreeable to undergo the next in the series of epidural injections once that authorization has been obtained. 2. No medication changes made at today's visit. The patient will continue current medical therapy as prior prescribed. 3. Plan to see the patient back in followup visit once we have achieved the authorization for the patient to undergo a lumbar epidural injection under fluoroscopic guidance. We are hopeful we can have this done quickly and the patient can return as rapidly as possible to undergo the procedure. 4. We wish to thank the referring physician for the opportunity to see the patient again in consultation. We are pleased to see she has done well with previous epidural injections and hopeful to see similar improvement once we were able to provide in the series of epidural injections. <ELECTRONICALLY SIGNED> By: Matthias Milton DO 05/17/21 [id number] Matthias Milton DO /nt
== END ==
LOC: PAIN 07:17
PROVIDERS: ATTEND Anesthesiology Pain Medicine
DX: M79.662 Pain in left lower leg (principal); M51.16 Intervertebral disc disorders with radiculopathy, lumbar region; M47.26 Other spondylosis with radiculopathy, lumbar region; G89.4 Chronic pain syndrome; Z79.899 Other long term (current) drug therapy; Z79.891 Long term (current) use of opiate analgesic

== ENCOUNTER → 2021-05-24 | Outpatient (CLI) | payer OTHER ==
[~2021-05-24] VITALS: Ht 157.5 cm; Wt 95.6 kg
--- NOTE | ~2021-05-24 | HPC ---
[facility] [place] [address] PAIN MANAGEMENT CONSULTATION Name: LAWRENCE WOLFE [facility]: [facility] [id number] Admission: 05/24/21 Attend Phys: Matthias Milton DO Discharge: Date of : 62 Report #: [id number] THIS REPORT FOR: cc: DIXIE CORTEZ Physician not on staff Matthias Milton DO ~ cc: Nate Cortez DATE OF SERVICE: 05/24/2021 REFERRING PHYSICIAN: Dr. Nate Cortez. CHIEF COMPLAINT: Low back pain, bilateral lower extremity pain with paresthesias. HISTORY OF PRESENT ILLNESS: As you know, the patient is a 60-year-old female who returns today in followup visit to undergo next in the series of lumbar epidural injections under fluoroscopic guidance. The patient had been doing very well until just recently where she had a recurrence of her symptoms. She states pain begins in low back, radiates down both legs. She is placing pain today up to 7/10. She denies new injury, new trauma or any changes in medication management since our last visit. She returns today in followup visit to undergo next in the series of lumbar epidural injections to build on success of previous intervention. ALLERGIES: HYDROCHLOROTHIAZIDE. CURRENT MEDICATIONS: See chart. SOCIAL HISTORY: The patient denies tobacco, alcohol or IV illicit drug use. She is working, not receiving workmen's compensation, unaccompanied today. IMAGING: No new imaging available. PHYSICAL EXAMINATION: GENERAL: Well-developed, well-nourished, well-hydrated, morbidly obese 60-year-old female appearing stated age, pain is rated at a 6-7/10. HEENT: Normocephalic, atraumatic. Pupils equal, round and responsive. She is wearing a mask in compliance with COVID-19 regulations. EXTREMITIES: Show no clubbing, no cyanosis. No appreciable edema. MUSCULOSKELETAL: Lower extremity strength equal and symmetrical, 5/5, intact to light touch from L1 through S2 dermatomes. Seated straight leg raising negative. Supine straight leg raising positive. Fabere's test is negative. ASSESSMENT: 1. Symptomatic lumbar radiculopathy. 2. Progressively worsening spinal stenosis of lumbar spine. [facility] [address] [place] [address] PAIN MANAGEMENT CONSULTATION Name: LAWRENCE WOLFESARAHKARIE Room #: REG [facility].#: [id number] Admission: 05/24/21 Attend Phys: Matthias Milton DO Discharge: Date of : 62 Report #: [id number] 3. Displacement of lumbar intervertebral disk with radiculopathy. 4. Lumbosacral spondylosis with radiculopathy. 5. Lumbar degeneration. 6. Chronic intractable pain. PLAN: 1. The patient returns today in followup visit having noted excellent benefit with the previous epidural injection up to 80% improvement in overall pain, but unfortunately her symptoms have reoccurred. She returns today in followup visit to undergo next in the series of lumbar epidural injections. The patient has been advised risks and benefits of this procedure, states understood and wished to proceed. 2. No medication changes made at today's visit. The patient will continue current medical therapy as prior prescribed. 3. The patient's blood pressure is noted to be quite elevated today, 166/100. Previous blood pressure at our last visit was 159/99. In the postoperative recovery area, the patient's blood pressure reached 174/110. We have advised the patient to follow up with her PCP as quickly as possible. She is denying any vision changes, headaches or changes in urine output concerning of hypertensive urgency. I do recommend the patient follow up with her PCP as quickly as possible and make further adjustments in her antihypertensive agents. 4. We will see the patient back in followup visit for the next in the series of lumbar epidural injections. We are hopeful the patient will continue to see good benefit with their use. PROCEDURE NOTE: DESCRIPTION OF PROCEDURE: L5-S1 interlaminar epidural steroid injection under fluoroscopic guidance. After obtaining written consent, the patient was taken back to fluoroscopy suite, placed in prone position with pillow under abdomen to decrease lumbar lordosis. Skin overlying lumbosacral area then prepped and draped in aseptic fashion. L5-S1 vertebral interspace identified by AP fluoroscopy. Skin and subcutaneous tissue overlying target site injection anesthetized with 3 mL 1% lidocaine. A 4-1/2 inch Tuohy needle advanced under fluoroscopic guidance towards the epidural space using a parasagittal approach. Epidural space identified using loss of resistance to air technique. After negative aspiration for heme or cerebrospinal fluid, 1 mL of Omnipaque injected. Lumbar epidurogram was confirmed using both AP and lateral fluoroscopy. After negative aspiration for heme or cerebrospinal fluid, 5 mL solution containing 2 mL 40 mg per mL 80 mg total triamcinolone along with 3 mL of lidocaine, 1% injected slowly. Needle retracted mcc, flushed with 1 mL of 1% lidocaine and removed and a sterile bandage was placed over injection site. No new motor deficits present in [facility] [address] [place] [address] PAIN MANAGEMENT CONSULTATION Name: LAWRENCE WOLFE [facility] [id number] Admission: 05/24/21 Attend Phys: Matthias Milton DO Discharge: Date of : 62 Report #: [id number] extremity following procedure. The patient tolerated the procedure well, carefully escorted to recovery room in stable condition. No apparent complications. After meeting discharge criteria, the patient discharged home. By: [id number] Matthias Milton DO /nt
[2021-05-24 08:38] VITALS: BP 166/100
--- NOTE | 2021-05-24 09:01 | NUR ---
Pain Clinic Assessment: 1. History of Osteoarthritis: DENIES History of Rheumatoid Arthritis: DENIES 2. Height: 5 ft. 2 in. 157.5 cm. Weight: 210.8 lb. oz. 95.618 kg. Patient's BMI: 38.5 3. Vital Signs: BP: 166/100 Pulse: 71 Resp: 16 Temp: 02 Sat: 100 ECG Mon: 4. Pain Intensity: 5 ACTIVITY 5. Fall Risk: Dizziness: N Needs help standing or walking: N Fallen in the last 3 months: N Fall risk comments: 6. Patient on Blood Thinner: None 7. History of Hypertension: Y 8. Opioid Therapy greater than 6 weeks: N Opiate Contract Signed: 9. Risk Assessment Tool Provided: low risk 10. Functional Assessment Tool: 11. Recreational Drug Use: Never Drug Type: Tobacco Use: Never Smoker Tobacco Type: Amount or Packs/day: How Many Years: Alcohol Use: No Frequency: Quant:
== END | disposition home or self-care (01) ==
LOC: PAIN 08:19
PROVIDERS: ATTEND Anesthesiology Pain Medicine
DX: M51.16 Intervertebral disc disorders with radiculopathy, lumbar region (principal); M48.061 Spinal stenosis, lumbar region without neurogenic claudication; M47.27 Other spondylosis with radiculopathy, lumbosacral region; G89.29 Other chronic pain; E66.01 Morbid (severe) obesity due to excess calories; I10 Essential (primary) hypertension; Z98.890 Other specified postprocedural states; Z79.899 Other long term (current) drug therapy; Z88.8 Allergy status to other drugs, medicaments and biological substances